=== PATIENT | female | born 1955 | race Caucasian/White ===

== ENCOUNTER → 2017-11-04 | Outpatient (CLI) | payer OTHER ==
[~2017-11-04] MED LIST: IOPAMIDOL (ISOVUE 370) 100 ML BTL IV ONE
== END ==
LOC: FIMAGING 10:09
PROVIDERS: ATTEND Internal Medicine Cardiovascular Disease
DX: I65.23 Occlusion and stenosis of bilateral carotid arteries (principal); Z95.818 Presence of other cardiac implants and grafts; I65.02 Occlusion and stenosis of left vertebral artery
CPT/HCPCS: 70496; 70498; Q9967; 82565-PO

== ENCOUNTER 2018-01-21 07:55 | Day surgery (SDC) | payer OTHER ==
[2018-01-21] MEDS ORDERED: NS 1,000 ML IV ONE (07:57)
[2018-01-21] MEDS ORDERED: BACITRACIN IRRIGATION/NS 50,000 UNITS/1,000 ML BTL IRR ONE (07:57)
[2018-01-21] MEDS ORDERED: ceFAZolin 2 GM/DEXTROSE 100 ML IV ONE (07:57)
[2018-01-21] MEDS ORDERED: diphenhydrAMINE 25 MG CAP PO ONE ×2 (07:57→08:31)
[2018-01-21] MEDS ORDERED: DIAZEPAM 5 MG TAB PO ONE (07:57)
[2018-01-21] MEDS ORDERED: FAMOTIDINE 20 MG TAB ONE (08:31)
[2018-01-21 08:36] LABS: PLATELET COUNT 333 10^3/uL (150-400)
[2018-01-21 08:49] LABS: INR 0.91 (0.83-1.16); PROTIME(PATIENT) 12.5 SEC (12.0-15.0)
[2018-01-21] MEDS ORDERED: FAMOTIDINE 20 MG TAB PO ONE (09:00)
[2018-01-21] MEDS ORDERED: LIDO/EPI 1% **for epidural** 30 ML SDV ONE (09:27)
[2018-01-21] MEDS ORDERED: BUPIVACAINE 0.75% 10 ML SDV ONE (09:27)
[2018-01-21] MEDS ORDERED: LIDOCAINE 1% 300 MG/30 ML SDV ONE (09:27)
[2018-01-21] MEDS ORDERED: MIDAZOLAM 2 MG/2 ML VIAL ONE ×2 (09:52→10:35)
[2018-01-21] MEDS ORDERED: LIDOCAINE 2% 2 ML INJ ONE ×2 (09:58)
[2018-01-21] MEDS ORDERED: PROPOFOL/EMULSION 500 MG/50 ML BOTTLE IV ONE (09:58)
--- NOTE | 2018-01-21 10:07 | PDGENHP ---
History and Physical - Chief Complaint AICD battery depletion - History of Present Illness Matt Palacios has an ischemic CM with AICD for that indication failed bypass and MADAI stents remotely. The device has reached VALENTE and needs to be replaced. History Information - Allergies/Home Medication List Allergies/Adverse Reactions: Iodinated Contrast- Oral and IV Dye [IV Dye, Iodine Containing] Allergy (Unknown , Verified 12/31/09 08:49) Hives Home Medications: Advair Hfa 115-21 Mcg Inhaler IH BID 01/21/18 [Last Taken 01/20/18 21:00] Aldactone 50 mg PO DAILY 01/21/18 [Last Taken 01/20/18 21:00] Altace 2.5 mg PO DAILY 01/21/18 [Last Taken 01/20/18 21:00] Aspirin 325 mg PO DAILY 01/21/18 [Last Taken 01/20/18 08:00] Coreg Cr 20 mg PO DAILY 01/21/18 [Last Taken 01/20/18 08:00] Crestor 10 mg PO DAILY 01/21/18 [Last Taken 01/20/18 21:00] Lasix 40 mg PO DAILY 01/21/18 [Last Taken 01/20/18 08:00] Levoxyl 125 mcg PO DAILY 01/21/18 [Last Taken 01/21/18 06:30] Lexapro 10 mg PO DAILY 01/21/18 [Last Taken 01/20/18 08:00] Omeprazole 40 mg PO DAILY 01/21/18 [Last Taken 01/20/18 08:00] Plavix 75 mg PO DAILY 01/21/18 [Last Taken 01/17/18 08:00] Zyrtec 10 mg PO DAILY PRN 01/21/18 [Last Taken 01/21/18 06:30] I have personally reviewed and updated: family history, medical history, social history, surgical history - Surgical History Additional surgical history: see H and P - Social History Smoking Status: Former smoker Review of Systems Review of Systems: Constitutional: Reports: no symptoms EENMT: Reports: other (laryngectomy) Cardiac: Reports: no symptoms Respiratory: Reports: no symptoms. Denies: shortness of breath, stridor, wheezing Gastrointestinal: Reports: no symptoms Muscolosketal: Reports: no symptoms Skin: Reports: no symptoms Neurological: Reports: no symptoms, tingling. Denies: anxiety, depressed, headache, numbness, paresthesia, pre-existing deficit, seizure, tremors, weakness Hematologic/Lymphatic: Reports: no symptoms Immunologic/Allergy: Reports: no symptoms Physical Exam Physical Exam: The patient is a 62 year old patient blood pressure and heart rate are normal General appears well HEENT prior tracheotomy Neck right carotid pulse absent and loud left sided bruit Heart regular rate ryhthm faint murmur.. Lungs CTA bilaterally Abd positive bowel sounds not tender Ext No peripheral edema... no cyanosis or clubbing Lab Data & Imaging Review 01/21/18 08:20 01/21/18 08:20 WBC 5.54 10^3/uL (3.80-9.50) 01/21/18 08:20 RBC 4.85 10^6/uL (4.18-5.33) 01/21/18 08:20 Hgb 11.4 g/dL (12.6-16.3) L 01/21/18 08:20 Hct 36.5 % (38.0-47.0) L 01/21/18 08:20 MCV 75.3 fL (81.5-99.8) L 01/21/18 08:20 MCH 23.5 pg (27.9-34.1) L 01/21/18 08:20 MCHC 31.2 g/dL (32.4-36.7) L 01/21/18 08:20 RDW 18.6 % (11.5-15.2) H 01/21/18 08:20 Plt Count 333 10^3/uL (150-400) 01/21/18 08:20 MPV 9.0 fL (8.7-11.7) 01/21/18 08:20 Neut % (Auto) 57.7 % (39.3-74.2) 01/21/18 08:20 Lymph % (Auto) 24.7 % (15.0-45.0) 01/21/18 08:20 Stewart % (Auto) 13.4 % (4.5-13.0) H 01/21/18 08:20 Eos % (Auto) 2.7 % (0.6-7.6) 01/21/18 08:20 Baso % (Auto) 1.1 % (0.3-1.7) 01/21/18 08:20 Nucleat RBC Rel Count 0.0 % (0.0-0.2) 01/21/18 08:20 Absolute Neuts (auto) 3.20 10^3/uL (1.70-6.50) 01/21/18 08:20 Absolute Lymphs (auto) 1.37 10^3/uL (1.00-3.00) 01/21/18 08:20 Absolute Monos (auto) 0.74 10^3/uL (0.30-0.80) 01/21/18 08:20 Absolute Eos (auto) 0.15 10^3/uL (0.03-0.40) 01/21/18 08:20 Absolute Basos (auto) 0.06 10^3/uL (0.02-0.10) 01/21/18 08:20 Absolute Nucleated RBC 0.00 10^3/uL (0-0.01) 01/21/18 08:20 Immature Gran % 0.4 % (0.0-1.1) 01/21/18 08:20 Immature Gran # 0.02 10^3/uL (0.00-0.10) 01/21/18 08:20 PT 12.5 SEC (12.0-15.0) 01/21/18 08:20 INR 0.91 (0.83-1.16) 01/21/18 08:20 Sodium 136 mEq/L (135-145) 01/21/18 08:20 Potassium 3.8 mEq/L (3.3-5.0) 01/21/18 08:20 Chloride 97 mEq/L (97-110) 01/21/18 08:20 Carbon Dioxide 30 mEq/l (22-31) 01/21/18 08:20 Anion Gap 9 mEq/L (6-14) 01/21/18 08:20 BUN 26 mg/dL (7-23) H 01/21/18 08:20 Creatinine 1.2 mg/dL (0.6-1.0) H 01/21/18 08:20 Estimated GFR 46 01/21/18 08:20 Glucose 106 mg/dL (70-100) H 01/21/18 08:20 Calcium 9.5 mg/dL (8.5-10.4) 01/21/18 08:20 Triglycerides 89 mg/dL (35-135) 01/21/18 08:20 Cholesterol 174 mg/dL (140-220) 01/21/18 08:20 Cholesterol Risk Factr 0.4 (0.2-1.0) 01/21/18 08:20 LDL Cholesterol, Calc 58 mg/dL (80-100) L 01/21/18 08:20 LDL Risk Factor 0.4 (0.2-1.0) 01/21/18 08:20 VLDL Cholesterol 18 mg/dL (8-25) 01/21/18 08:20 Non-HDL Cholesterol 76 mg/dL (90-129) L 01/21/18 08:20 HDL Cholesterol 98 mg/dL (40-85) H 01/21/18 08:20 LDL/HDL Ratio 0.59 RATIO (1.00-3.22) L 01/21/18 08:20 Cholesterol/HDL Ratio 1.78 RATIO (1.00-4.44) 01/21/18 08:20 Visualized and Interpreted Chest x-ray results: No Visualized and Interpreted EKG results: Yes Assessment & Plan Assessment: Pacemaker battery depletion (Acute) AICD for initial indication of ischemic cardiomyopathy has reached VALENTE prior carotid stent on left right carotid is occluded plan for anesthesia... Plan: As above...
[2018-01-21] MEDS ORDERED: PROPOFOL 200 MG/20 ML VIAL ONE (10:26)
[2018-01-21] MEDS ORDERED: ACETAMINOPHEN 500 MG TAB PO PRN (12:09)
[2018-01-21] MEDS ORDERED: ONDANSETRON 4 MG/2 ML VIAL IVP PRN (12:09)
[2018-01-21] MEDS ORDERED: NALOXONE HCL 0.4 MG/ML INJ IVP PRN (12:09)
[2018-01-21] MEDS ORDERED: ALBUTEROL 3 ML DEYVIAL IH PRN (12:09)
[2018-01-21] MEDS ORDERED: HYDROCODONE/APAP 5/325 TAB PO PRN (12:09)
[2018-01-21] MEDS ORDERED: fentaNYL 100 MCG/2 ML INJ IVP PRN (12:09)
[2018-01-21] MEDS ORDERED: DEXAMETHASONE 4 MG/ML VIAL IVP PRN (12:09)
[2018-01-21] MEDS ORDERED: MIDAZOLAM 2 MG/2 ML VIAL IVP ONE (12:10)
--- NOTE | 2018-01-21 12:11 | PDANEPAE ---
ANE History of Present Illness ICD Generator Exchange ANE Past Medical History - Cardiovascular History Hx Arrhythmias: Yes Hx Coronary Artery / Peripheral Vascular Disease: Yes - Pulmonary History Hx COPD: Yes Hx Asthma/Reactive Airway Disease: Yes Hx Oxygen in Use at Home: No Hx Sleep Apnea: No ANE Review of Systems Review of Systems: ANE Patient History - Allergies Allergies/Adverse Reactions: Iodinated Contrast- Oral and IV Dye [IV Dye, Iodine Containing] Allergy (Unknown , Verified 12/31/09 08:49) Hives - Home Medications Home Medications: Advair Hfa 115-21 Mcg Inhaler IH BID 01/21/18 [Last Taken 01/20/18 21:00] Aldactone 50 mg PO DAILY 01/21/18 [Last Taken 01/20/18 21:00] Altace 2.5 mg PO DAILY 01/21/18 [Last Taken 01/20/18 21:00] Aspirin 325 mg PO DAILY 01/21/18 [Last Taken 01/20/18 08:00] Coreg Cr 20 mg PO DAILY 01/21/18 [Last Taken 01/20/18 08:00] Crestor 10 mg PO DAILY 01/21/18 [Last Taken 01/20/18 21:00] Lasix 40 mg PO DAILY 01/21/18 [Last Taken 01/20/18 08:00] Levoxyl 125 mcg PO DAILY 01/21/18 [Last Taken 01/21/18 06:30] Lexapro 10 mg PO DAILY 01/21/18 [Last Taken 01/20/18 08:00] Omeprazole 40 mg PO DAILY 01/21/18 [Last Taken 01/20/18 08:00] Plavix 75 mg PO DAILY 01/21/18 [Last Taken 01/17/18 08:00] Zyrtec 10 mg PO DAILY PRN 01/21/18 [Last Taken 01/21/18 06:30] - Smoking Hx Smoking Status: Former smoker ANE Labs/Vital Signs - Labs Result Diagrams: 01/21/18 08:20 01/21/18 08:20 - Vital Signs Height: 157 cm Weight: 63.5 kg ANE Physical Exam - Airway Neck exam: FROM Mallampati Score: Class 2 Mouth exam: normal dental/mouth exam - Pulmonary Pulmonary: clear to auscultation - Cardiovascular Cardiovascular: regular rate and rhythym - ASA Status ASA Status: III (Mature Trachostomy) ANE Anesthesia Plan Anesthesia Plan: GA with mask
--- NOTE | 2018-01-21 12:12 | POSTANESTH ---
Post Anesthetic Evaluation Cardiovascular Status: Normal, Stable Respiratory Status: Normal, Stable Level of Consciousness/Mental Status: Can Participate in Eval, Alert and Oriented Pain Control: Adequate, Prn Tx Ordered Nausea/Vomiting Control: Adequate, Prn Tx Ordered Complications Possibly Related to Anesthesia: None Noted
--- NOTE | 2018-01-22 12:09 | CPEKG ---
Test Reason : OPEN Blood Pressure : / mmHG Vent. Rate : 094 BPM Atrial Rate : 094 BPM P-R Int : 067 ms QRS Dur : 143 ms QT Int : 443 ms P-R-T Axes : 104 268 102 degrees QTc Int : 555 ms Atrial-sensed ventricular-paced rhythm unchanged in comparison to prior Confirmed by Lee Fitch [id number]) on 01/22/2018 12:09:36 PM Referred By: Confirmed By:Lee Fitch
== END 2018-01-21 14:05 | disposition home or self-care (01) ==
LOC: FCATH 07:55
PROVIDERS: ATTEND Internal Medicine Cardiovascular Disease
PROC: 0JH638Z Insertion of Defibrillator Generator into Chest Subcutaneous Tissue and Fascia, Percutaneous Approach (ICD-10-PCS; principal; 2018-01-21)
PROC: 0JPT0PZ Removal of Cardiac Rhythm Related Device from Trunk Subcutaneous Tissue and Fascia, Open Approach (ICD-10-PCS; principal; 2018-01-21)
DX: Z45.02 Encounter for adjustment and management of automatic implantable cardiac defibrillator (principal); I42.9 Cardiomyopathy, unspecified; R09.89 Other specified symptoms and signs involving the circulatory and respiratory systems; I25.10 Atherosclerotic heart disease of native coronary artery without angina pectoris; I44.7 Left bundle-branch block, unspecified
CPT/HCPCS: C1882; J0690; J2250; J2704